=== PATIENT | female | born 1950 | race Caucasian/White ===

== ENCOUNTER 2020-01-18 05:51 | Day surgery (SDC) | payer MEDICARE ==
[2020-01-16 10:12] LABS: BASOPHILS % (AUTO) 0.8 % (0.0-5.0); EOSINOPHILS % (AUTO) 1.6 % (0.0-8.0); HEMATOCRIT 41.1 % (36-48); LYMPHOCYTES % (AUTO) 26.8 % (21.0-51.0); MEAN CORPUSCULAR HEMOGLOBIN 30.6 pg (27.0-33.0); MEAN CORPUSCULAR HGB CONC 32.4 g/dL (32.0-36.0); MEAN CORPUSCULAR VOLUME 94.5 fL (79-99); MONOCYTES % (AUTO) 11.1 % (3.0-13.0); NEUTROPHILS % (AUTO) 59.4 % (40.0-77.0); PLATELET COUNT (AUTO) 230 K/uL (130-400); RED BLOOD CELL COUNT(AUTO) 4.35 MIL/uL (4.00-5.50); RED CELL DISTRIBUTION WIDTH 13.2 % (11.0-15.5); WHITE BLOOD COUNT (AUTO) 3.7 K/uL (4.8-10.8)
[2020-01-16 10:16] VITALS: BP 155/73
[2020-01-16 10:21] LABS: CREATININE 0.7 mg/dL (0.5-1.5); POTASSIUM 4.2 mmol/L (3.5-5.1)
[2020-01-16 10:24] LABS: INR 0.96 (0.85-1.15); PARTIAL THROMBOPLASTIN TIME 27.1 SEC (26.3-35.5); PROTHROMBIN TIME 10.1 SEC (9.6-11.6)
[2020-01-18] VITALS (8 sets, daily range): BP systolic 138–173; BP diastolic 68–88
[~2020-01-18] VITALS: Ht 162.6 cm; Wt 67.9 kg
[~2020-01-18 05:51] MED LIST: ASPI-555 PO; LOSA50TA64 PO; MULT-1192 PO
[2020-01-18] MEDS ORDERED: SODIUM CHLORIDE 0.9% 1000ML 1,000 ML IV ONE (06:00)
--- NOTE | 2020-01-18 06:00 | NUR ---
ASSESSMENT PT ARRIVED AMBULATORY WITH SPOUSE FOR EPS STUDY. PT IN NO DISTRESS. PT ORIENTED TO ROOM. PT CONNECTED TO HEAD GRINDER. PT MADE COMFORTABLE IN BED, CALL LIGHT WITHIN REACH AND BED IN LOWEST POSITION.
[2020-01-18] MEDS ORDERED: OMEG-109 PO (07:04)
[2020-01-18] MEDS ORDERED: [UNRECOGNIZED DRUG - OTHER] PO (07:04)
[2020-01-18] MEDS ORDERED: MV-M1TAB20 PO (07:04)
[2020-01-18] MEDS ORDERED: CYAN500011 PO (07:04)
[2020-01-18] MEDS ORDERED: REPLENEX PO (07:04)
[2020-01-18] MEDS ORDERED: [UNRECOGNIZED DRUG - OTHER] PO (07:04)
[2020-01-18] MEDS ORDERED: [UNRECOGNIZED DRUG - OTHER] PO (07:04)
[2020-01-18] MEDS ORDERED: MIDAZOLAM HCL 1 MG/ML 2ML VIAL ONE (07:22)
--- NOTE | 2020-01-18 07:22 | NUR ---
TRANSFER TO CATH PT TAKEN TO PRISON GUARD SUPERVISOR VIA BED BY NOHEMI GARLAND RN. PT IN NO DISTRESS. SPOUSE AT BEDSIDE.
[2020-01-18] MEDS ORDERED: MEPERIDINE-PF 50 MG/ML SYG ONE (07:23)
[2020-01-18] MEDS ORDERED: LIDOCAINE HCL 2% 20ML ONE (07:23)
[2020-01-18] MEDS ORDERED: SODIUM CHLORIDE 0.9% 1000ML 1,000 ML IV SCH (08:00)
--- NOTE | 2020-01-18 10:35 | NUR ---
PROCEDURE PT RETURNED FROM [employer]. LYING FLAT. INSTRUCTED ON IMPORTANCE OF KEEPING RIGHT LEG STRAIGHT AND NOT LIFTING HEAD. VERBALIZED UNDERSTANDING
--- NOTE | 2020-01-18 10:58 | NUR ---
OUTPUT VOID X1 PER BEDPAN Addendum: 01/18/20 at 1102 by ROSE MARIE SHORT RN RN Amended: Links added.
--- NOTE | 2020-01-18 13:15 | NUR ---
ACTIVITY PT HOB ELEVATED TO 30 DEGREES. RT GROIN PUNCTURE SITE FREE FROM S/S OF BLEEDING
== END 2020-01-18 13:45 | disposition home or self-care (01) ==
LOC: DAH 05:51
PROVIDERS: ATTEND Internal Medicine Cardiovascular Disease
DX: I45.10 Unspecified right bundle-branch block (principal); I10 Essential (primary) hypertension; Z96.611 Presence of right artificial shoulder joint; Z79.899 Other long term (current) drug therapy; Z88.8 Allergy status to other drugs, medicaments and biological substances; Z98.890 Other specified postprocedural states; Z96.641 Presence of right artificial hip joint; Z82.49 Family history of ischemic heart disease and other diseases of the circulatory system
CPT/HCPCS: 36415; 80048; 85025; 85610; 85730; 93005; 93620; A4215; A4216; A4221; A4222; A4223 ×3; A4606; A4663; C1730 ×2; C1894 ×3; J1644; J3490; J7030; J2175; J2250

== ENCOUNTER → 2020-05-16 | Outpatient (CLI) | payer MEDICARE ==
[~2020-05-16] MED LIST changes: -ASPI-555 PO; +ASPI-556 PO; +CYAN500011 PO; +MV-M1TAB20 PO; +OMEG-109 PO; +REPLENEX PO; +[UNRECOGNIZED DRUG - OTHER] PO; +[UNRECOGNIZED DRUG - OTHER] PO; +[UNRECOGNIZED DRUG - OTHER] PO
== END | disposition home or self-care (01) ==
LOC: SHCH 10:56
PROVIDERS: ATTEND Internal Medicine Cardiovascular Disease
DX: I87.2 Venous insufficiency (chronic) (peripheral) (principal)
CPT/HCPCS: 93970

== ENCOUNTER → 2020-10-29 | Outpatient (CLI) | payer MEDICARE | END | disposition home or self-care (01) | LOC: SHCH 08:06 | PROVIDERS: ATTEND Internal Medicine Cardiovascular Disease | DX: I87.2 Venous insufficiency (chronic) (peripheral) (principal); Z09 Encounter for follow-up examination after completed treatment for conditions other than malignant neoplasm | CPT/HCPCS: 93971 ==